=== PATIENT | male | born 1960 | race Caucasian/White ===

== ENCOUNTER → 2018-07-19 15:58 | Outpatient (CLI) | payer OTHER, SELFPAY ==
--- OUTSIDE RECORDS SUMMARY | 2018-09-14 08:58 | XMS RPT_ITS ---
:1960 Author Organization [facility] Care Team Providers Name Role Phone Davie Gallo Attending Unavailable Davie Gallo Referring Unavailable Primay Care Physicia, No Primary Care Unavailable Davie Gallo Attending Unavailable Davie Gallo Referring Unavailable Primay Care Physicia, No Primary Care Unavailable PROBLEMS PROBLEMS No Problem Records FoundPROCEDURES PROCEDURES No Procedure Records FoundRESULTS RESULTS SINUS/FACIAL BONE Observed: 07/29/2018 Status: F Source: [place] 2:52 PM [facility] REPOSITORY [facility] Imaging Services [address] [place] [id number] Sinus/Facial Bone MR#: [id number] Acct: [id number] Name: LEONEL GONZALEZ Rep #: [id number] : 1960 M 57 From: Buster Loja MD PCP: Care Physician, No Primary Status: REG CLI Study: Sinus/Facial Bone Date of Exam: 07/29/18 Exam# [id number] Ordering Dr: Davie Gallo MD STUDY: CT MAXILLOFACIAL SINUSES REASON FOR EXAM: Male, 57 years old. Chronic sinusitis worse on the right RADIATION DOSAGE (If Supplied By Facility): CTDIvol = ( 33.4 ) mGy, DLP = ( 503.71 ) mGycm TECHNIQUE: The patient was scanned in a multi detector CT scanner. High resolution axial imaging was performed without the administration of intravenous contrast material. Sagittal and coronal images were reconstructed. Individualized dose optimization techniques were used for this CT. COMPARISON: None. FINDINGS: FRONTAL SINUSES: Right frontal sinusitis. ETHMOIDAL SINUSES: Normal aeration, without mucosal inflammatory disease. MAXILLARY SINUSES: Right maxillary sinusitis. An osseous defect of the right maxillary sinus floor is noted which could be related to underlying dental trauma or infection. SPHENOIDAL SINUSES: Normal aeration, without mucosal inflammatory disease. Occlusion of the right infundibulum. Normal bilateral middle turbinates. Normal bilateral inferior turbinates. Normal midline nasal septum. There is patency of the bilateral nasal airways. The visualized osseous structures are normal. The visualized bilateral orbital contents are normal. CT/Sinus/Facial Bone IMPRESSION: Right frontal and right maxillary sinusitis. Occlusion of the right infundibulum. An osseous defect of the right maxillary sinus floor is noted which could be related to underlying dental trauma or infection. Electronically Signed: Buster Loaj MD at 15:38 EST Tel , Service support , CC: No Primary Care Physician; Davie Gallo MD Hi Teacher: Signed Observed: 07/19/2018 Status: F Source: [place] CULTURE, NOSE 3:10 PM [facility] REPOSITORY Gram Stain Gram Stain 2+ White Blood Cells Rare Epithelial cells No organisms seen Nasoph. Cult No Streptococcus pneumoniae, beta-hemolytic Streptococcus or Staphylococcus aureus isolated. Performed By: #### [id number] #### [facility] [place], [address] PROGRESS Observed: 12/28/2017 Status: COMPLETED Source: [place] 11:30 AM [facility] REPOSITORY O ID: [id number] Author: Jami Guerrero (Lucien) Service: (none) Author Type: Physician Shoe Salesman Type: Progress Notes Filed: 12/28/2017 12:24 PM Note Text: 12/28/2017 Patient presents with: Sinus Problem: sinus pressure and drainage, productive cough x 1 week, recurring SUBJECTIVE: This is a 57 year old that is here today for Complaint(s) of sinus pressure and drainage x 10 days. + sinus pain. Notes productive cough. + fatigue. + purulent drainage. Denies SOB, wheezing, fever/chills. PAST MEDICAL HISTORY Diagnosis Date - TIA (transient ischemic attack) ALLERGIES Penicillins MEDICATIONS Current Outpatient Prescriptions: L. RHAMNOSUS GG/INULIN (CULTURELLE PROBIOTICS ORAL) Take by mouth. CALCIUM CARBONATE/VITAMIN D3 (VITAMIN D-3 ORAL) Take by mouth. CYANOCOBALAMIN, VITAMIN B-12, (VITAMIN B-12 ORAL) Take by mouth. No current facility-administered medications for this visit. SOCIAL HISTORY Social History Marital status: Spouse name: Years of education: Number of children: Social History Main Topics Smoking status: Former Smoker Packs/day: 2.00 Years: 3.00 Types: Cigarettes, Cigars Quit date: 08/23/1979 Smokeless tobacco: Former User Types: Chew Comment: Patient states he never smoked consistently for more than 18 months Alcohol use: Yes Comment: I enjoy a beer. Drug use: No Comment: 30 plus years ago. REVIEW OF SYSTEMS All other reviewed and negative other than HPI. OBJECTIVE: BP 128/72 Pulse 64 Temp 36.7 ?C (98 ?F) (Tympanic) Resp 16 Wt 106.1 kg (234 lb) SpO2 96% BMI 32.64 kg/m? APPEARANCE Well appearing, alert, in no acute distress, well-hydrated, well nourished. EYES PERRLA, conjunctiva and sclera normal. EARS External ears normal, canals clear. TMs normal JESENIA NOSE/SINUS Nares normal. Septum midline. Mucosa normal. No drainage. + JESENIA frontal and maxillary sinus tenderness. THROAT normal, no erythema NECK Supple, no adenopathy; HEART RRR with normal S1 and S2 LUNG clear to auscultation ASSESSMENT/PLAN: 1. Sinobronchitis - ICD9: 473.9, 490, ICD10: J32.9, J40 - Will begin treatment with as per antibiotic as written, see orders - The patient should also be given OTC cough and cold meds as needed, behind the counter Pseudoephedrine, warm salt water gargles, throat lozenges and/or OTC throat spray as needed and nasal saline gtts and suction prn for the first 5-7 days of treatment. - Supportive care with plenty of fluids, rest, and analgesia prn. - Follow up in 3-5 days if symptoms persist or worsen. - DOXYCYCLINE MONOHYDRATE 100 MG CAPSULE The patient indicates understanding of these issues and agrees with the plan. .annika Guerrero PA-C CNOV Observed: 12/28/2017 Status: COMPLETED Source: [place] 11:00 AM [facility] REPOSITORY Office Visit (WSTR) LEONEL GONZALEZ ([id number]) 1960 M Date Time Provider Department 12/28/17 11:00 AM JAMI GUERRERO) WS During your visit today, we recorded the following information about you: Temperature Pulse Respiration Blood pressure 98 degrees 64/minute 16/minute 128/72 Weight 106.1 kg Jami Guerrero) 12/28/2017 12:24 PM Signed 12/28/2017 Patient presents with: Sinus Problem: sinus pressure and drainage, productive cough x 1 week, recurring SUBJECTIVE: This is a 57 year old that is here today for Complaint(s) of sinus pressure and drainage x 10 days. + sinus pain. Notes productive cough. + fatigue. + purulent drainage. Denies SOB, wheezing, fever/chills. PAST MEDICAL HISTORY Diagnosis Date - TIA (transient ischemic attack) ALLERGIES Penicillins MEDICATIONS Current Outpatient Prescriptions: L. RHAMNOSUS GG/INULIN (CULTURELLE PROBIOTICS ORAL) Take by mouth. CALCIUM CARBONATE/VITAMIN D3 (VITAMIN D-3 ORAL) Take by mouth. CYANOCOBALAMIN, VITAMIN B-12, (VITAMIN B-12 ORAL) Take by mouth. No current facility-administered medications for this visit. SOCIAL HISTORY Social History Marital status: Spouse name: Years of education: Number of children: Social History Main Topics Smoking status: Former Smoker Packs/day: 2.00 Years: 3.00 Types: Cigarettes, Cigars Quit date: 08/23/1979 Smokeless tobacco: Former User Types: Chew Comment: Patient states he never smoked consistently for more than 18 months Alcohol use: Yes Comment: I enjoy a beer. Drug use: No Comment: 30 plus years ago. REVIEW OF SYSTEMS All other reviewed and negative other than HPI. OBJECTIVE: BP 128/72 Pulse 64 Temp 36.7 ?C (98 ?F) (Tympanic) Resp 16 Wt 106.1 kg (234 lb) SpO2 96% BMI 32.64 kg/m? APPEARANCE Well appearing, alert, in no acute distress, well- hydrated, well nourished. EYES PERRLA, conjunctiva and sclera normal. EARS External ears normal, canals clear. TMs normal JESENIA NOSE/SINUS Nares normal. Septum midline. Mucosa normal. No drainage. + JESENIA frontal and maxillary sinus tenderness. THROAT normal, no erythema NECK Supple, no adenopathy; HEART RRR with normal S1 and S2 LUNG clear to auscultation ASSESSMENT/PLAN: 1. Sinobronchitis - ICD9: 473.9, 490, ICD10: J32.9, J40 - Will begin treatment with as per antibiotic as written, see orders - The patient should also be given OTC cough and cold meds as needed, behind the counter Pseudoephedrine, warm salt water gargles, throat lozenges and/or OTC throat spray as needed and nasal saline gtts and suction prn for the first 5-7 days of treatment. - Supportive care with plenty of fluids, rest, and analgesia prn. - Follow up in 3-5 days if symptoms persist or worsen. - DOXYCYCLINE MONOHYDRATE 100 MG CAPSULE The patient indicates understanding of these issues and agrees with the plan. .LUCIEN Quezada Bernadette (Lucien) 12/28/2017 11:34 AM Signed Sudafed Referring Provider: SELF [200] Allergies As of Date: 12/28/2017 Noted Allergy Reaction PENICILLINS 11/22/2015 4 - Hives 9 - Itching Comments: Childhood. Date Reviewed: 12/28/2017 Reviewed by: Rachel Ahuja Ma - Fully Assessed Reason for Visit: Sinus Problem [99] Cmt: sinus pressure and drainage, productive cough x 1 week, recurring Primary Visit Diagnosis:Sinobronchitis [J32.9, J40] Order(s):doxycycline monohydrate (MONODOX) 100 mg capsuleTake 1 capsule by mouth twice daily for 10 days.Disp: 20 capsuleRfl: 0 Prescriptions as of 12/28/2017 Sig: DOXYCYCLINE MONOHYDRATE 100 M* Take 1 capsule by mouth twice* CULTURELLE PROBIOTICS ORAL Take by mouth. VITAMIN D-3 ORAL Take by mouth. VITAMIN B-12 ORAL Take by mouth. Problem List As Of Date: 12/28/2017 (None) Other instructions from your clinician: Sudafed Prescriptions ordered this encounter Disp Refills Start End DOXYCYCLINE MONOHYDRATE 100 MG CAPSU* 20 c* 0 12/28/2017 01/07/2018 Route: ORAL Sig: Take 1 capsule by mouth twice daily for 10 days. Encounter Status:Closed by JAMI GUERRERO PA-C on 12/28/17 PROGRESS Observed: 10/12/2017 Status: COMPLETED Source: [place] 11:11 AM [facility] REPOSITORY HNO ID: [id number] Author: Neto Jefferson Service: (none) Author Type: Physician Type: Progress Notes Filed: 10/12/2017 11:40 AM Note Text: Patient presents with: Sinus Problem: ache in head, right eye AND down right side of face X 6 days HPI: Feeling bad sinus symptoms for 6 days. He has chronic sinus and nasal congestion during the winter. Reports he had the flu in August. He is traveling to [place] soon. Positive symptoms: Sinus pressure (right forehead, cheek, and maxilla), Nasal Congestion, foul smelling intermittent large brown drainage, Post nasal drainage, Negative symptoms: Cough, Sorethroat, Fever, Chills, OTC: saline rinse PAST MEDICAL HISTORY Diagnosis Date - TIA (transient ischemic attack) MEDICATIONS: Current Outpatient Prescriptions: L. RHAMNOSUS GG/INULIN (CULTURELLE PROBIOTICS ORAL) Take by mouth. CALCIUM CARBONATE/VITAMIN D3 (VITAMIN D-3 ORAL) Take by mouth. CYANOCOBALAMIN, VITAMIN B-12, (VITAMIN B-12 ORAL) Take by mouth. No current facility-administered medications for this visit. ALLERGIES: ALLERGIES Allergen Reactions - Penicillins Hives, Itching Childhood. VITALS: BP 130/92 Pulse 60 Temp 36.4 ?C (97.6 ?F) Resp 16 Wt 109.3 kg (241 lb) BMI 33.61 kg/m2 PHYSICAL EXAM: GEN: Pleasant, in no acute distress. HEENT: PERRL, EOMI, conjunctiva clear Ears: canals clear, TMs without erythema, bulge, or effusion Sinuses: tender right sinuses Throat: moist mucous membranes, no erythema, no exudate Neck: supple, no thyromegaly, no lymphadenopathy HEART: regular rate and rhythm, no murmurs LUNGS: clear to auscultation, no wheezes or crackles, no increased WOB ASSESSMENT/PLAN: 1. Acute non-recurrent sinusitis, unspecified location - ICD9: 461.9, ICD10: J01.90 - Will begin treatment with - DOXYCYCLINE MONOHYDRATE 100 MG CAPSULE Neto Jefferson MD ALLERGIES ALLERGIES DATE TYPE / CODE NAME / CODE REACTION SEVERITY SOURCE 11/22/2015 Drug PENICILLINS HIVES Low [facility] Class/[address] [place] 1003(SNOMED Repository CT) ENCOUNTERS ENCOUNTERS ADMIT/DISCHARGE ACCOUNT ADMITTING ENCOUNTER LOCATION SOURCE NUMBER CLASS 07/29/2018 [id number] [facility] ing:CT Repository 07/19/2018 [id number] [facility] ing:LABSPEC Repository 12/28/2017/12/30/19 [id number] Ambulatory [address] Repository 10/12/2017/10/14/[id number] Repository PAYERS PAYERS ENCOUNTER GUARANTOR PAYER SUBSCRIBER SOURCE 07/29/2018 LEONEL Miner Primary Insurance:[facility] LEONEL Miner Imer [id number] PACKAGE PLANPolicy WEAVERDOB[facility] RDAPPLE Number: [id number] [place], [place] [id number] Repository [address]Ycl: (330) Date:2018-07-19 [phone] () 07/29/2018 Secondary NOT GIVENUNK Imer Insurance:SELF PAY [facility] Number: Effective Repository Date:2018-07-19 07/19/2018 LEONEL Miner Primary OLU WEAVERDOB: [place] [id number] Insurance:AULTCAREPol [id number] [facility] RDAPPLE icy Number: [place], [place] [id number] Repository [address]Ryu: (330) Date:[id number] [phone] () [address], [place] [address]OR: 07/19/2018 Secondary NOT GIVENUNK Imer Insurance:SELF PAY [facility]: Effective Repository Date:2018-07-19
== END ==
PROVIDERS: Referring Provider Otolaryngology Otolaryngology/Facial Plastic Surgery; Visit Provider Otolaryngology Otolaryngology/Facial Plastic Surgery
DX: J32.9 Chronic sinusitis, unspecified (principal)
CPT/HCPCS: 87070; 87205

== ENCOUNTER → 2018-07-29 14:41 | Outpatient (CLI) | payer SELFPAY ==
--- NOTE | 2018-07-29 14:52 | CT_ITS ---
STUDY: CT MAXILLOFACIAL SINUSES REASON FOR EXAM: Male, 57 years old. Chronic sinusitis worse on the right RADIATION DOSAGE (If Supplied By Facility): CTDIvol = ( 33.4 ) mGy, DLP = ( 503.71 ) mGycm TECHNIQUE: The patient was scanned in a multi detector CT scanner. High resolution axial imaging was performed without the administration of intravenous contrast material. Sagittal and coronal images were reconstructed. Individualized dose optimization techniques were used for this CT. COMPARISON: None. FINDINGS: FRONTAL SINUSES: Right frontal sinusitis. ETHMOIDAL SINUSES: Normal aeration, without mucosal inflammatory disease. MAXILLARY SINUSES: Right maxillary sinusitis. An osseous defect of the right maxillary sinus floor is noted which could be related to underlying dental trauma or infection. SPHENOIDAL SINUSES: Normal aeration, without mucosal inflammatory disease. Occlusion of the right infundibulum. Normal bilateral middle turbinates. Normal bilateral inferior turbinates. Normal midline nasal septum. There is patency of the bilateral nasal airways. The visualized osseous structures are normal. The visualized bilateral orbital contents are normal. CT/Sinus/Facial Bone IMPRESSION: Right frontal and right maxillary sinusitis. Occlusion of the right infundibulum. An osseous defect of the right maxillary sinus floor is noted which could be related to underlying dental trauma or infection. Electronically Signed: Buster Loja MD at 15:38 EST Tel , Service support ,
== END ==
PROVIDERS: Referring Provider Otolaryngology Otolaryngology/Facial Plastic Surgery; Visit Provider Otolaryngology Otolaryngology/Facial Plastic Surgery
DX: J32.9 Chronic sinusitis, unspecified (principal)
CPT/HCPCS: 70486

== ENCOUNTER → 2018-08-12 15:37 | Outpatient (CLI) | payer OTHER, SELFPAY | PROVIDERS: Referring Provider Otolaryngology; Visit Provider Otolaryngology | DX: J32.9 Chronic sinusitis, unspecified (principal) | CPT/HCPCS: 87070; 87205 ==

== ENCOUNTER → 2021-08-13 | Outpatient (CLI) | payer SELFPAY ==
[2021-08-13 12:54] LABS: Absolute Lymphocyte Count 1.51 X10^3/uL (0.83-4.51); Absolute Neutrophil Count 3.8 X10^3/uL (2.0-7.7); Basophil# 0.03 X10^3/uL; Basophil% 0.5 % (0-1); Eosinophil# 0.06 X10^3/uL; Hematocrit 45.4 % (40-54); Hemoglobin 15.7 g/dL (13.0-16.5); Lymphocyte # 1.51 X10^3/ul (0.83-4.51); Lymphocyte % 25.5 % (19-41); Mean Corp Hgb Conc 34.6 g/dL (32-36); Mean Corpuscular Hgb 28.8 pg (27.0-32.0); Mean Corpuscular Volume 83.2 fL (80-94); Mean Platelet Vol. 9.7 fl (6.2-12.0); Monocyte# 0.51 X10^3/uL; Monocyte% 8.6 % (0-10); NRBC Flagged by Analyzer 0 % (0-5); Neutrophil # 3.79 X10^3/uL (2.7-7.7); Neutrophil % 64.1 % (47-70); Platelet Count 252 K/mm3 (150-450); RBC Distribution Width CV 12.2 % (11.6-14.6); RBC Distribution Width SD 36.9 fl (35.1-43.9); Red Blood Count 5.46 M/mm3 (4.6-6.2); White Blood Count 5.9 K/mm3 (4.4-11.0)
[2021-08-13 13:06] LABS: D-Dimer Quantitative (DVT/PE) 0.34 FEU/ug/m (0.27-0.49)
[2021-08-13 13:20] LABS: ALB/GLOB Ratio 0.9 RATIO (0.9-2.4); AST(SGOT) 17 U/L (15-37); Alanine Aminotransfer ALT/SGPT 36 U/L (16-61); Albumin, Serum 3.6 g/dL (3.2-5.0); Alkaline Phosphatase 46 U/L (45-117); Anion Gap 6 (5-15); BUN 20 mg/dL (7-18); BUN/Creat Ratio 24.9 RATIO (10-20); Chloride 107 mmol/L (98-107); EST Glomerular Filtration Rate 104 mL/min (>60); Est Glom Filt Rate - Afr Amer 126 mL/min (>60); Globulin 3.8 g/dL (2.2-4.2); Glucose 89 mg/dL (74-106); Potassium 3.8 mmol/L (3.5-5.1); Protein, Total 7.4 g/dL (6.4-8.2); Sodium Level 140 mmol/L (136-145); Troponin-I HS 6 pg/mL (3.0-78.0)
== END | disposition home or self-care (01) ==
LOC: LABSPEC 12:42
PROVIDERS: PCP Internal Medicine; Referring Provider Internal Medicine; Visit Provider Internal Medicine
DX: R07.9 Chest pain, unspecified (principal)
CPT/HCPCS: 80053; 84484; 85025; 85379

== ENCOUNTER 2021-08-25 06:43 | Outpatient (CLI) | payer SELFPAY ==
--- NOTE | 2021-08-25 11:58 | STRESSREP ---
Stress Test Report Exercise myocardial perfusion stress test. 60-year-old male with a history of chest pain. Stress protocol: Resting KG demonstrates sinus bradycardia with a rate of 54 bpm normal intervals are noted resting blood pressure is 124/82 mmHg. The patient exercised according to regular Sorin protocol for total duration of 8 minutes and 30 seconds. Patient completed 2 minutes and 30 seconds into stage III of the Sorin protocol. The maximum heart rate attained was 160 bpm which 100% of max impact at heart rate the maximum workload was 10.1 metabolic equivalents. At rest there were no ST or T wave changes noted to suggest ischemia and at peak exercise upsloping ST changes were noted which did not meet the criteria for ischemia. No clinical angina was noted. The maximum blood pressure was up to 22 over 100 mmHg suggesting a hypertensive response to exercise. Myocardial perfusion protocol. 14.0 mCi of technetium 99m sestamibi was injected at rest. The patient exercised according to regular Sorin protocol. And at peak exercise 43.0 mCi of technetium 99m sestamibi was injected stress images were obtained stress and rest images were reconstructed and compared in the short axis vertical long and horizontal long axis. Gated images were also obtained. Perfusion SPECT analysis: Review of the stress images demonstrate normal uptake of tracer noted in all areas of the myocardium. The resting images similarly demonstrate normal uptake of tracer noted in all areas of the myocardium. No areas of reversibility are noted suggest ischemia. Gated SPECT analysis: The gated ejection fraction is 86%. Conclusion: Normal exercise myocardial perfusion stress test at a high workload. Preserved ejection fraction. Hypertensive response to exercise.
== END 2021-08-25 23:59 | disposition short-term general hospital (02) ==
PROVIDERS: PCP Internal Medicine; Referring Provider Internal Medicine; Visit Provider Internal Medicine
DX: R07.9 Chest pain, unspecified (principal)
CPT/HCPCS: 78452; 93017; A9500; A4216

== ENCOUNTER 2021-10-09 13:07 | Outpatient (CLI) | payer SELFPAY ==
--- NOTE | 2021-10-09 13:31 | CT_ITS ---
STUDY: CT CHEST WITHOUT CONTRAST-Limited REASON FOR EXAM: Male, 60 years old. HIGH CHOLESTEROL RADIATION DOSAGE (If Supplied By Facility): CTDIvol = ( ) mGy, DLP = ( ) mGycm TECHNIQUE: Transaxial imaging was performed without the administration of intravenous contrast material. Exam performed for coronary scoring (interpreted by another physician/service). Individualized dose optimization techniques were used for this CT. COMPARISON: None. FINDINGS: Partially calcified smooth nodule in the left lower lobe is compatible with a granuloma. No suspicious noncalcified nodules. There is no demonstrated pleural abnormality. Normal heart and pericardium. Coronary arteries/scarring reported by another service. Normal visualized mediastinum. Normal hilar regions. Normal unenhanced pulmonary arteries. Normal aorta arch and descending thoracic aorta. Normal visualized osseous structures. There is no demonstrated abnormality of the visualized upper abdomen. CT/Limited Chest CT w/CCTA IMPRESSION: No incidental findings regarding additional workup/follow-up. Electronically Signed: Ben Goodman MD (Brooks) at 14:22 EST ,
[2021-10-09 13:53] VITALS: BP 121/58; PULSE 47; RESP 16; O2SAT 98; BMI 33.7
[2021-10-09 14:10] LABS: CRP, High Sensitivity Cardiac 2.16 mg/L; Cholesterol 183 mg/dL (200); Ferritin 145 ng/mL (26-388); High Density Lipoprotein 49 mg/dL; Triglycerides 131 mg/dL; Very Low Density Lipoprotein 26 mg/dL (5-40)
--- NOTE | 2021-10-09 18:10 | CA.SCORE ---
Calcium Scoring Date of Study:: 10/09/21 Coronary Calcium Scoring: High-resolution Computed Tomographic imaging of the chest was performed on 10/09/2021 with particular attention paid to the coronary arteries. Images from the examination were analyzed for the presence and extent of coronary artery calcification , using coronary calcium quantification software. The patient tolerated the procedure well and there were no complications. The results of the coronary calcification analysis are provided below. Findings Coronary Artery Left Main (LM): 0 Left Anterior Descending (LAD): 0 Left Circumflex (LCX): 0 Right Coronary Artery (RCA): 44.6 Total Agatston Score: 44.6 Percentile Ranking: According to prepublished reference tables between 25% and 50% of patients of the same gender/similar age had the same/lower scores. Calcium Scoring Interpretation: 0 No identifiable atherosclerotic plaque. Very low cardiovascular disease risk. <5% chance of presence coronary artery disease A Negative Examination 1-10 Minimal Plaque burden. Significant coronary artery disease very unlikely. 11-100 Mild plaque burden. Likely mild or minimal coronary atherosclerosis. 101-400 Moderate plaque burden Moderate non-obstructive coronary artery disease highly likely. Over 400 Extensive plaque burden. High likelihood of at least one significant coronary stenosis (>50% diameter) Calcium Score: 11 - 100 Likely mild or minimal coronary stenosis Conclusion: Continue cardiovascular risk factor evaluation care as deemed appropriate. This note was generated using a voice recognition system and there may be incorrect words, spelling or punctuation that were not noted when reviewing the office note prior to saving.
== END 2021-10-09 23:59 | disposition home or self-care (01) ==
LOC: CT 13:20
PROVIDERS: PCP Internal Medicine; Referring Provider Internal Medicine; Visit Provider Internal Medicine
DX: Z14.8 Genetic carrier of other disease (principal); K04.7 Periapical abscess without sinus; E78.5 Hyperlipidemia, unspecified; E78.00 Pure hypercholesterolemia, unspecified
CPT/HCPCS: 36415; 75571; 76380; 80061; 82728; 86141

== ENCOUNTER 2021-11-25 07:35 | Outpatient (CLI) | payer SELFPAY ==
--- NOTE | 2021-11-25 07:43 | RAD_ITS ---
STUDY: AIR CONTRAST UPPER GI SERIES and esophagram. REASON FOR EXAM: Male, 61 years old. DYSPHAGIA -- DO 12 MM TABLET FLUOROSCOPY TIME (if supplied): (52 seconds) minutes/seconds. 23 images were obtained. TECHNIQUE: SINGLE CONTRAST AND AIR CONTRAST FLUOROSCOPIC IMAGES. COMPARISON: None. FINDINGS: The cervical esophagus demonstrates normal motility without aspiration. There is no stricture or extrinsic mass effect. No intraluminal polypoid mass is identified. The thoracic esophagus distends well without stricture or mucosal fold thickening. No mucosal ulcerations are identified. There is no extrinsic mass effect. There are no diverticula. No hiatal hernia or gastroesophageal reflux was identified. The patient ingested a 12 mm tablet of barium without any difficulty. The stomach distends well without mucosal fold thickening or mucosal ulceration. There is no intraluminal mass. The duodenal bulb is freely distensible without deformity or ulceration. The duodenal sweep is normal in position and caliber. RAD/Upper GI w/BA Swallow IMPRESSION: Normal air-contrast upper GI series and esophagram. Electronically Signed: Mamadou Moreno MD at 12:54 EDT ,
== END 2021-11-25 23:59 | disposition home or self-care (01) ==
LOC: RAD 07:40
PROVIDERS: PCP Internal Medicine; Referring Provider Internal Medicine; Visit Provider Internal Medicine
DX: R13.10 Dysphagia, unspecified (principal)
CPT/HCPCS: 74246

== ENCOUNTER → 2022-10-17 | Outpatient (CLI) | payer SELFPAY ==
--- NOTE | 2022-10-17 12:26 | MRI_ITS ---
We are attempting to reach an attending provider to discuss findings. An addendum with communication details will be sent when the communication is complete. EXAM: MR HEAD WITHOUT INTRAVENOUS CONTRAST CLINICAL INDICATION: Tension headaches. TECHNIQUE: Multiplanar and multisequence MR images of the brain were obtained without intravenous contrast. This report was created using [employer] report generation technology. COMPARISON: CT maxillofacial 07/29/2018. FINDINGS: BRAIN AND EXTRA-AXIAL SPACES: Large vasogenic edema in the right frontal lobe and right temporal lobe due to suspicious mass in the right anterior temporal pole extending to the right frontal operculum and the floor of the right middle cranial fossa. The vasogenic edema is causing 7 mm right to left subfalcine herniation. No intra- or extra-axial hemorrhage. No evidence of acute infarct. There is preservation of the panda/white matter interface. Posterior fossa structures are unremarkable. Basal cisterns are patent. SELLA: Unremarkable. Normal sella turcica, pituitary gland, infundibular stalk, optic chiasm and hypothalamus. AUDITORY SYSTEM: Unremarkable. The internal auditory canals are patent. BONES/JOINTS: Unremarkable. No discrete lytic or blastic abnormalities. SINUSES: Unremarkable as visualized. Clear. MASTOID AIR CELLS: Unremarkable as visualized. Clear. ORBITS: Unremarkable as visualized. Both globes, extraocular muscles, optic nerves and retrobulbar fat appear unremarkable. VASCULATURE: Unremarkable as visualized. Normal flow voids in the major intracranial circulation. MRI/Brain without Contrast IMPRESSION: Large mass in the right anterior temporal pole extending to the right frontal operculum and the floor of the right middle cranial fossa with large vasogenic edema in the right temporal lobe white matter and the right frontal lobe white matter. This is causing 7 mm right to left subfalcine herniation. Malignant intra-axial neoplasm versus extra-axial neoplasm such as meningioma. RECOMMENDATION: MRI brain with intravenous contrast for further evaluation. Electronically Signed: Sedrick Norris MD at 13:55 EST ,
--- NOTE | 2022-10-17 14:42 | MRI_ITS ---
EXAM: MR HEAD WITH INTRAVENOUS CONTRAST CLINICAL INDICATION: ABNORMAL MRI F/U -- PLEASE CALL DR BANKS WITH RESULTS [phone] TECHNIQUE: Multiplanar and multisequence MR images of the brain were obtained with intravenous contrast. This report was created using [employer] report [employer] technology. CONTRAST: IV 14cc clariscan COMPARISON: Noncontrast study 12:41 PM. FINDINGS: BRAIN AND EXTRA-AXIAL SPACES: 3.4 x 4.3 x 4.8 cm homogeneously enhancing extra-axial lesion in the anterior right middle cranial fossa and floor of the anterior cranial fossa. Minimal dural tail. 7 mm midline shift to the left. Basal cisterns are intact. Ventricles are appropriate for age. No hydrocephalus. SELLA: Unremarkable. Normal visualized pituitary gland and infundibular stalk.. SINUSES: Unremarkable as visualized. Clear. MASTOID AIR CELLS: Unremarkable as visualized. Clear. ORBITS: Unremarkable as visualized. Both globes, extraocular muscles, optic nerves and retrobulbar fat appear unremarkable. MRI/Brain WITH Contrast IMPRESSION: Enhancing extra-axial lesion in the right anterior and middle cranial fossae consistent with meningioma. Due to extensive vasogenic edema, hemangiopericytoma is an additional consideration. Pending Final Proof Editing
== END | disposition home or self-care (01) ==
PROVIDERS: PCP Internal Medicine; Visit Provider Internal Medicine
DX: G44.209 Tension-type headache, unspecified, not intractable (principal)
CPT/HCPCS: 70551; 70552; A9575

== ENCOUNTER → 2022-10-19 | Outpatient (CLI) | payer SELFPAY ==
[2022-10-19 13:59] LABS: Potassium 4.1 mmol/L (3.5-5.1)
== END | disposition home or self-care (01) ==
PROVIDERS: PCP Internal Medicine; Referring Provider Internal Medicine; Visit Provider Internal Medicine
DX: E87.5 Hyperkalemia (principal)
CPT/HCPCS: 84132

== ENCOUNTER → 2025-01-08 | Outpatient (CLI) | payer SELFPAY | END | disposition home or self-care (01) | LOC: LABSPEC 14:50 | PROVIDERS: PCP Internal Medicine; Referring Provider Internal Medicine; Visit Provider Internal Medicine | DX: R09.3 Abnormal sputum (principal) | CPT/HCPCS: 87070; 87205 ==

== ENCOUNTER → 2025-06-04 | Outpatient (CLI) | payer SELFPAY ==
[2025-06-04 14:29] LABS: Squamous Epithelial Cells - UA 0 SEEN /hpf (0-5)
[2025-06-04 14:46] LABS: Color, Urine Yellow (Yellow); Glucose, Dipstick Normal (Normal); Hematocrit 46.9 % (40-54); Hemoglobin 15.5 g/dL (13.0-16.5); Immature Granulocytes Count 0.100 X10^3/uL (0.0-0.0); Ketone-Dipstick Negative (Negative); Leukocyte Esterase-Dipstick Negative /ul (Negative); Mean Corp Hgb Conc 33.0 g/dL (32-36); Mean Corpuscular Volume 84.2 fL (80-94); Mean Platelet Vol. 9.0 fl (6.2-12.0); NRBC Flagged by Analyzer 0 % (0-5); Nitrite-Dipstick Negative (Negative); Occult Blood-Urine 10 /ul (Negative); Platelet Count 251 K/mm3 (150-450); Protein-Dipstick 15 mg/dl (Negative); RBC Distribution Width CV 13.9 % (11.6-14.6); RBC Distribution Width SD 43.0 fl (35.1-43.9); Red Blood Count 5.57 M/mm3 (4.6-6.2); Specific Gravity, Urine 1.020 (1.002-1.030); Urine Bilirubin Dipstick Negative (Negative); White Blood Count 7.8 K/mm3 (4.4-11.0)
[2025-06-04 14:53] LABS: Mucous, Urine 2+ /hpf (<or=2+); Red Blood Cells-Urine 0-5 SEEN /hpf (0-5)
[2025-06-04 15:06] LABS: AST(SGOT) 16 U/L (<=37); Alanine Aminotransfer ALT/SGPT 23 U/L (<=46); Albumin, Serum 4.0 g/dL (3.4-4.8); Alkaline Phosphatase 50 U/L (40-129); Anion Gap 12 (5-15); BUN 22 mg/dL (4-19); BUN/Creat Ratio 24.7 RATIO (10-20); Calcium,Total 9.2 mg/dL (7.6-11.0); Carbon Dioxide 27.1 mmol/L (21.0-32.0); Chloride 103 mmol/L (98-108); Globulin 2.2 g/dL (2.2-4.2); Glucose 69 mg/dL (70-99); Potassium 4.2 mmol/L (3.3-5.1)
[2025-06-04 15:17] LABS: Creatinine, Urine (random) 264.00 mg/dL (39.00-259.00); Microalbumin,Random Urine < 12.0 mg/L (<20 mg/L)
[2025-06-06 17:08] LABS: PSA, Total 1.9 ng/mL (0.0-4.0)
== END | disposition home or self-care (01) ==
PROVIDERS: PCP Internal Medicine; Referring Provider Internal Medicine; Visit Provider Internal Medicine
DX: Z86.13 Personal history of malaria (principal); I10 Essential (primary) hypertension; Z12.5 Encounter for screening for malignant neoplasm of prostate; R73.9 Hyperglycemia, unspecified
CPT/HCPCS: 80053; 81001; 82043; 82570; 84153; 85025; 87086

== ENCOUNTER → 2025-08-02 | Outpatient (CLI) | payer MEDICARE, OTHER, SELFPAY ==
[2025-08-02 12:33] LABS: Hematocrit 43.2 % (40-54); Hemoglobin 14.9 g/dL (13.0-16.5); Immature Granulocytes Count 0.220 X10^3/uL (0.0-0.0); Mean Corp Hgb Conc 34.5 g/dL (32-36); Mean Corpuscular Volume 84.4 fL (80-94); Mean Platelet Vol. 8.8 fl (6.2-12.0); NRBC Flagged by Analyzer 0 % (0-5); Platelet Count 230 K/mm3 (150-450); RBC Distribution Width CV 17.1 % (11.6-14.6); RBC Distribution Width SD 52.0 fl (35.1-43.9); Red Blood Count 5.12 M/mm3 (4.6-6.2); White Blood Count 9.9 K/mm3 (4.4-11.0)
[2025-08-02 12:57] LABS: AST(SGOT) 20 U/L (<=37); Alanine Aminotransfer ALT/SGPT 32 U/L (<=46); Albumin, Serum 3.7 g/dL (3.4-4.8); Alkaline Phosphatase 53 U/L (40-129); Anion Gap 12 (5-15); BUN 23 mg/dL (4-19); BUN/Creat Ratio 26.3 RATIO (10-20); Calcium,Total 9.3 mg/dL (7.6-11.0); Carbon Dioxide 24.5 mmol/L (21.0-32.0); Chloride 104 mmol/L (98-108); Globulin 2.8 g/dL (2.2-4.2); Glucose 114 mg/dL (70-99); Potassium 3.9 mmol/L (3.3-5.1)
[2025-08-02 12:58] LABS: Vitamin D,25 Hydroxy 39.0 ng/mL (30-100)
== END | disposition home or self-care (01) ==
LOC: CIMLAB 10:19
PROVIDERS: PCP Internal Medicine; Referring Provider Internal Medicine; Visit Provider Internal Medicine
DX: I10 Essential (primary) hypertension (principal); E55.9 Vitamin D deficiency, unspecified
CPT/HCPCS: 36415; 80053; 82306; 85025